=== PATIENT | male | born 1995 | race Caucasian/White ===

== ENCOUNTER 2017-05-08 12:56 | Day surgery (SDC) | payer OTHER ==
[~2017-05-08 12:56] MED LIST: CEFAZOLIN SODIUM 2 GM in DEXTROSE 5%-WATER 100 ML IV PRN; LACTATED RINGERS 1000 ML IV PRN; LIDOCAINE 0.5% INJ-PF (5 MG/ML) 50 ML SDV SUBCUT PRN
[2017-05-08] MEDS ORDERED: BUPIVACAINE HCL 0.5 % INJ/PF 30 ML SDV ONE (16:30)
[2017-05-08] MEDS ORDERED: FENTANYL CITRATE INJ/PF 100 MCG/2 ML AMPUL ONE (16:33)
[2017-05-08] MEDS ORDERED: PROPOFOL INJ 200 MG/20 ML VIAL IV ONE (16:33)
[2017-05-08] MEDS ORDERED: MIDAZOLAM 2 MG/2 ML INJ ONE (16:33)
[2017-05-08] MEDS ORDERED: IBUPROFEN INJ 800 MG/8 ML VIAL IV ONE (16:33)
[2017-05-08] MEDS ORDERED: DEXAMETHASONE SOD PHOSPHATE INJ 4 MG/1 ML VIAL ONE (16:33)
[2017-05-08] MEDS ORDERED: ONDANSETRON HCL INJ/PF 4 MG/2 ML SDV ONE (16:33)
[2017-05-08] MEDS ORDERED: HYDROMORPHONE HCL INJ/PF 2 MG/ML AMPULE ONE (16:34)
[2017-05-08] MEDS ORDERED: FENTANYL CITRATE INJ/PF 100 MCG/2 ML AMPUL IV PRN ×3 (17:10)
[2017-05-08] MEDS ORDERED: DIPHENHYDRAMINE HCL 50 MG/ML VIAL IV PRN (17:10)
[2017-05-08] MEDS ORDERED: MEPERIDINE HCL/PF INJ 25 MG/1 ML DISP.SYRIN IV PRN (17:10)
[2017-05-08] MEDS ORDERED: ONDANSETRON HCL INJ/PF 4 MG/2 ML SDV IV PRN ×2 (17:10→18:54)
[2017-05-08] MEDS ORDERED: MORPHINE SULFATE 10 MG/ML INJ IV PRN (18:54)
[2017-05-08] MEDS ORDERED: OXYCODONE-ACETAMINOPHEN 5-325 MG TABLET PO PRN (18:54)
--- NOTE | 2017-05-08 18:55 | PDOC DISCHARGE SUMMARY ---
Discharge Summary (SDC) - Discharge Final Diagnosis: Transscaphoid/Transcapitate Perilunate Date of Surgery: 05/08/17 Discharge Date: 05/08/17 Condition: Good Treatment or Instructions: Schedule Follow Up w/ Dr. William Reagan @ [facility] to be seen in 10-14 days or as scheduled [place]: [place]: [place]: Keep splint clean/dry/intact. Ice and elevate May begin finger range of motion attempting to make full fist. Stool softener of choice when on pain medication. Prescriptions: Oxycodone HCl/Acetaminophen [Percocet 5-325 mg Tablet] 1 - 2 tab PO ASDIR PRN # 45 tablet PRN Reason: Discharge Diet: As Tolerated Respiratory Treatments at Home: Deep Breathing/Coughing Discharge Activity: No Lifting Over 10 Pounds, No Lifting/Push/Pulling Report the Following to Your Physician Immediately: Fever over 101 Degrees, Unusual Bleeding, Redness, Swelling, Warmth, Numbness, Tingling Sensation
--- NOTE | 2017-05-08 19:10 | Operative Report ---
Operative Report DATE OF SURGERY: 05/08/17 PREOPERATIVE DIAGNOSIS: Left Trans Scaphoid, Trans Capitate Fracture POSTOPERATIVE DIAGNOSIS: Above + Perilunate Variant OPERATION: 1. ORIF Scaphoid Fracture. 2. ORIF Capitate Fracture. 3. Dorsal Capsulodesis w/ Pinning LT interval SURGEON: KYARA KAUR ANESTHESIA: GA COMPLICATIONS: None ESTIMATED BLOOD LOSS: Minimal PROCEDURE: Indication for above procedure: 21-year-old male who sustained a fall down a flight of steps onto his left wrist. Patient was seen at the emergency room where x-rays demonstrated scaphoid and capitate fracture. The patient was placed in a splint and subsequently referred to me for further evaluation and treatment unfortunately within a delayed fashion. At that time we discussed treatment options including operative intervention along with patient somewhat poor prognosis given the severity of his injury. Patient verbalized understanding and consented to the procedure. Procedure In Detail: Patient was seen and evaluated in the preoperative holding area. The LEFT upper extremity was initialized and marked. Patient received 2g of Ancef IV for bacterial prophylaxis. Patient was taken back to the operative room where transferred to the operative table and placed under general anesthesia. Once they were adequately anesthetized a nonsterile tourniquet was placed on the upper extremity. A surgical team debriefing was performed ensuring all instrumentation was available, the surgical procedure was discussed with possible concerns reviewed. The upper extremity was prepped with chlorhexidine and alcohol and draped in a sterile fashion. A timeout was done identifying correct patient, procedure and extremity everyone in attendance agree with this and verbalized no concerns. The extremity was exsanguinated the tourniquet was inflated to 250 mmHg. Longitudinal skin incision was made blunt dissection was performed through the soft tissue. The superficial radial nerve was identified and retracted with a skin flap. Any small venous vasculature was carefully coagulated with bipolar cautery. Identified the EPL tendon. The third dorsal compartment was opened and I elevated the fourth dorsal compartment leaving the DRC/DIC intact. A Buerge type radially based capsulotomy was made. A fracture of the capitate and scaphoid were identified. A small articular fragments were removed. The capitellum was rotated 180. With traction and gentle flexion To fragment could be dislodged however lacks any remaining soft tissue attachment. I then sutured the capitellar piece with 2 K wires. Unfortunately given the small size of the capitellar fragment I do not feel there is enough real estate for fixation. I then used C-arm to confirm appropriate placement of my K wire length and measured and found to be approximately 22mm. A total of 2 mm were subtracted and I placed a micro-Acutrak screw provided me excellent interfragmentary compression. C-arm fluoroscopy was obtained demonstrating acceptable reduction of the capitate. I then turned my attention to fixation of the scaphoid. Visualization of the scapholunate ligament demonstrated partial disruption but not complete disruption. There is no evidence of deep or lunate widening or deformity. The scaphoid was then reduced and held with a reduction tenaculum and 2 K wires were placed. A second K wire was placed in the center center position confirmed on AP, lateral, scaphoid view and oblique views. I then measured to be a 24 mm screw and thus a 20 mm screw was selected. The drill was utilized under C-arm fluoroscopy. The proximal fragment was countersunk. I then placed a 20 mm mini Acutrak screw which obtained good fixation of the scaphoid. The scaphoid and lunate moved as a unit there is no evidence of instability at the fracture site. C-arm fluoroscopy was obtained demonstrating mormonism of scaphoid height and appropriate placement of the hardware. There was no evidence of far cortex violation. Both screws were adequately countersunk below the articular surface to avoid operative irritation. Wound was then copiously irrigated with normal saline. Given the patient's injury I then proceeded with fixation of the LT interval added stability. A 0.062 K wire was placed along LT interval and cut below the skin. I then placed a scaphoid lunate however given the placement of my screws I was unable to get adequate fixation of the scaphoid or capitate. The scapholunate pin was removed due to irritation at the lunate-capitate interval. C arm fluoroscopy radiographs demonstrated mormonism of intercarpal alignment. There is no evidence of articular step-off widening normal capitolunate, radiolunate and scapholunate angles on lateral view. The wound was then copiously irrigated with normal saline. To provide further fixation I then proceeded with capsulodesis. The DRC was split and one section was secured to the dorsal aspect of the distal radius. A 2.4 mm Arthrex bio suture anne was placed in the inferior limb of the DRC was secured. I then secured the remaining capsule with interrupted 3 -0 Ethibond suture. This provide any good stability there is no evidence of subluxation or instability with wrist range of motion. Wound was once again irrigated with normal saline. The interval between the third and fourth dorsal compartments was closed with interrupted 4-0 Monocryl suture. Subcutaneous tissues were closed with 3-0 Monocryl suture. Skin was closed with a running subcuticular 4-0 Monocryl reinforced with Dermabond and Steri-Strips. 20 cc of 0.5% Marcaine with epinephrine was injected for postoperative pain control. Tourniquet was deflated. Patient had good peripheral perfusion. The wound was dressed with 4 x 4 soft roll patient was placed in a thumb spica splint volarly and a dorsal plaster splint. Sponge counts, instrument counts, needle counts counts were correct. Patient was then awoken from anesthesia. Transferred from the operating room table to the operating room stretcher. There was no intraoperative complications patient tolerated procedure well stable to PACU. Postoperative plan: Patient will follow in the office in 2 weeks at which point we will obtain radiographs. He was placed in a cast for 4 weeks. We will mobilize the patient in a cast likely for 10 weeks or until radiographic union of the capitate and scaphoid is confirmed.
--- NOTE | 2017-05-08 20:18 | RADIOLOGY REPORT (SQ) ---
EXAM DESCRIPTION: WRIST LEFT 2 VIEWS COMPLETED DATE/TIME: 05/08/2017 7:31 pm REASON FOR STUDY: ORIF W/ PERC PINNING LT WRIST S62.002A UNSP FRACTURE OF NAVICULAR BONE OF LEFT WR IST, INIT COMPARISON: None. FLUOROSCOPY TIME: 1 minutes 51 seconds 11 images saved to PACS. TECHNIQUE: Intra-operative images acquired during surgical procedure to evaluate progress. NUMBER OF IMAGES: 11 LIMITATIONS: None. FINDINGS: Fluoroscopic images were obtained during percutaneous pinning of the left wrist. Orthoped ic screws are identified in position. IMPRESSION: IMAGE(S) OBTAINED DURING PROCEDURE. COMMENT: Quality ID [id number]: Final reports for procedures using fluoroscopy that document radiation exp osure indices, or exposure time and number of fluorographic images (if radiation exposure indices are not available) Please consult full operative report of the attending physician for description of the procedure. TECHNICAL DOCUMENTATION: JOB ID: [id number] [employer]- All Rights Reserved
--- NOTE | 2017-05-08 20:18 | RADIOLOGY REPORT (SQ) ---
EXAM DESCRIPTION: NO CHG FLUORO COMPLETE DATE/TIME: 05/08/2017 7:31 pm REASON FOR STUDY: ORIF W/ PERC PINNING LT WRIST S62.002A UNSP FRACTURE OF NAVICULAR BONE OF LEFT WR IST, INIT FINDINGS: Please see combined report for performance of procedure and radiologic supervision and int erpretation. IMPRESSION: Please see combined report for performance of procedure and radiologic supervision and i nterpretation.
[2017-05-08 21:40] VITALS: BP 136/68
== END 2017-05-08 21:52 | disposition home or self-care (01) ==
LOC: OROUT 12:56 → 2N 12:56 → OROUT 21:52
PROVIDERS: ATTEND Orthopaedic Surgery
PROC: 0PSN04Z Reposition Left Carpal with Internal Fixation Device, Open Approach (ICD-10-PCS; 2017-05-08)
PROC: 0RQP0ZZ Repair Left Wrist Joint, Open Approach (ICD-10-PCS; 2017-05-08)
PROC: 0PSN04Z Reposition Left Carpal with Internal Fixation Device, Open Approach (ICD-10-PCS; principal; 2017-05-08 15:00)
DX: S62.002A Unspecified fracture of navicular [scaphoid] bone of left wrist, initial encounter for closed fracture (principal); S62.132A Displaced fracture of capitate [os magnum] bone, left wrist, initial encounter for closed fracture; S63.095A Other dislocation of left wrist and hand, initial encounter; W10.9XXA Fall (on) (from) unspecified stairs and steps, initial encounter; Z87.891 Personal history of nicotine dependence
CPT/HCPCS: 25628; 25645; 73100; 25320; C1713 ×2; C1769 ×2; J2250; J0690; J1100; J3010; J1170; J2405; J2704; J1741; 01830